=== PATIENT | male | born 1975 | race Two or more races ===

== ENCOUNTER 2020-03-04 02:10 | Emergency (ER) | payer SELFPAY ==
[~2020-03-04] VITALS: Ht 190.5 cm; Wt 87.6 kg
[2020-03-04 02:15] VITALS: BP 127/79
[2020-03-04] MEDS ORDERED: LIDOCAINE-MPF 1%, 5ML ONE (02:25)
--- NOTE | 2020-03-04 02:55 | NUR ---
PT D/C WITH D/C SUMMARY AND SCRIPTS. ALL QUESTIONS ANSWERED. PT AMBULATES TO [facility]IST[facility]K [facility]. PT DENIES ANY OTHER NEEDS PERTAINING TO THIS VISIT.
== END 2020-03-04 03:00 ==
LOC: ED 02:30
DX: L02.214 Cutaneous abscess of groin (principal)
CPT/HCPCS: 10060; 99283